=== PATIENT | female | born 1960 ===

== ENCOUNTER 2020-07-21 10:10 | Outpatient (REF) | payer OTHER, SELFPAY ==
[2020-07-21 11:38] LABS: Anion Gap 14 (12-20); Blood Urea Nitrogen 15 mg/dL (9-16); Calcium 8.6 mg/dL (8.4-10.2); Carbon Dioxide 26 mmol/L (22-29); Chloride 107 mmol/L (96-108); Cholesterol 185 mg/dL; Estimated Glomerular Filt Rate > 60; Glucose Fasting 80 mg/dL (60-99); HDL Cholesterol 48 mg/dL; LDL Cholesterol Calculated 117 mg/dl; Potassium 4.6 mmol/l (3.3-5.1); Sodium 142 mmol/L (135-145); Triglycerides 101 mg/dL; Uric Acid 5.4 mg/dL (2.4-5.7)
== END 2020-07-21 10:11 | disposition home or self-care (01) ==
LOC: HO.LAB 10:10
PROVIDERS: PCP Internal Medicine; Visit Provider Internal Medicine
DX: E79.0 Hyperuricemia without signs of inflammatory arthritis and tophaceous disease (principal); I10 Essential (primary) hypertension
CPT/HCPCS: 80048; 80061; 84550

== ENCOUNTER 2020-10-28 12:38 | Outpatient (REF) | payer OTHER, SELFPAY ==
--- NOTE | ~2020-10-28 | MM_ITS ---
EXAMINATION: MM SCREENING DIGITAL BREAST TOMOSYNTHESIS, BILATERAL CLINICAL INFORMATION: Screening. Asymptomatic. The lifetime risk of breast cancer based on the Tyrer-Cuzick Model is 16%. COMPARISON: Mammography: 05/26/2019, 04/13/2018, 04/06/2018, 02/05/2017 TECHNIQUE: Digital breast tomosynthesis is performed in both the craniocaudal and mediolateral oblique views along with computer-aided detection (CAD). Synthesized 2D images are generated from the tomosynthesis. FINDINGS: There are scattered areas of fibroglandular density (ACR BI-RADS breast composition Category b). There are no significant masses, abnormal calcifications, or other abnormalities. Parenchymal pattern is similar to prior studies. The axilla and skin contours are unremarkable. No architectural abnormality or developing density. No significant changes from prior exams. MM/MM tomosynthesis screening BI IMPRESSION: No mammographic evidence of malignancy. ASSESSMENT: BI-RADS 1: Negative RECOMMENDATION: Routine annual mammography screening. This patient's information was entered into a reminder system with a target due date for their next mammogram.
== END 2020-10-28 12:39 | disposition home or self-care (01) ==
LOC: HO.MAMMO 12:38
PROVIDERS: Visit Provider Internal Medicine
DX: Z12.31 Encounter for screening mammogram for malignant neoplasm of breast (principal)
CPT/HCPCS: 77063; 77067

== ENCOUNTER 2020-11-28 17:14 | Emergency (ER) | payer OTHER, SELFPAY ==
[2020-11-28 18:02] VITALS: BP 132/82; PULSE 74; RESP 18; TEMP 36.4; O2SAT 100; BMI 38.0
--- NOTE | 2020-11-28 19:11 | ED.SKABFB ---
HPI - Skin/Abscess/Foreign Bdy General Chief complaint: Skin/Abscess/Foreign Body Stated complaint: painful rash Time Seen by Provider: 11/28/20 18:52 Source: patient Mode of arrival: ambulatory Limitations: no limitations History of Present Illness HPI narrative: 60 y/o female presenting with painful, burning rash to the right side of her middle back for the last 5 days. She is unable to visualize the rash but states that it hurts. It is right under her bra strap. She denies new detergents, soaps, lotions. No fever or chills. No numbness, tingling, weakness. complaint: rash Onset (ago): day(s) (5) Tetanus up to date: unsure Location: back Severity: moderate Quality: burning and aching Pain Consistency: constant Relieving factors: none Exacerbating factors: palpation Context: none Associated symptoms: denies other symptoms Treatments prior to arrival: none Related Data Previous Rx's Medication Instructions Recorded ibuprofen 600 mg PO Q8H PRN #20 tab 11/28/20 valacyclovir 1,000 mg PO Q8H #21 tab 11/28/20 Allergies Allergy/AdvReac Type Severity Reaction Status Date / Time No Known Allergies Allergy Unverified 06/01/20 17:04 Review of Systems Review of Systems: Constitutional: No Fever, No Chills ENT/Mouth: No sore throat Eyes: No Eye Pain, No Swelling, No Redness Cardiovascular: No Chest Pain, No SOB Respiratory: No Cough, No Sputum Gastrointestinal: No Nausea, No Vomiting, No Diarrhea, No abdominal Pain Musculoskeletal: No joint pain, No Myalgias Skin: + Skin Lesions, + rash Neuro: No Weakness, No Numbness, No Dizziness, No Headache Heme/Lymph: No Bruising, No Lymphadenopathy PMFSH Past Medical History Attestation statement: The following information was validated with the patient. Medical History Asthma Social History Social History Advance Directives: No Advance Directives Information Provided: Yes Physical Exam Vital Signs: Vital Signs: Last Vital Signs Temp 97.6 F 11/28/20 18:02 Pulse 74 11/28/20 18:02 Resp 18 11/28/20 18:02 BP 132/82 11/28/20 18:02 Pulse Ox 100 11/28/20 18:02 Body Mass Index 38.0 Appearance: Alert. Oriented X3. No acute distress. HEENT: normal inspection CVS: Normal heart rate and rhythm. Pulses normal. Respiratory: No respiratory distress. Skin: Skin warm and dry. Normal skin color. Normal skin turgor. Middle right back with 5 blistering lesions in a linear fashion, erythema surrounding the area Extremities: atraumatic, no rashes. Neuro: Oriented X 3. No motor deficit. No sensory deficit. Course Course Course Narrative: 60 y/o female presenting with painful rash to right middle back - exam is consistent with herpes zoster, single dermatome distribution. No evidence of dissemination. Will start patient on valacyclovir and have her follow up with PCP. Stable for d/c. Critical Care Time Critical Care Time Critical Care Time: No Discharge Plan Discharge Clinical Impression: Herpes zoster Qualifiers: Herpes zoster complications: without complications Qualified Code(s): B02.9 - Zoster without complications Patient Disposition: Home, Self-Care Instructions: Shingles (ED) Additional Instructions: Take the prescribed anti-viral medication as prescribed - complete the entire course. Follow up with your doctor this week. If you have worsening symptoms come back to the ER for furher evaluation. Prescriptions: New valacyclovir 1 gram tablet 1,000 mg PO Q8H Qty: 21 RF: 0 ibuprofen 600 mg tablet 600 mg PO Q8H PRN (Reason: pain) Qty: 20 RF: 0 Interventions: ED Discharge Assessment Last Done: 11/28/20 19:38 Discharge Date/Time: 11/28/20 19:40
== END 2020-11-28 19:40 | disposition home or self-care (01) ==
PROVIDERS: Emergency Provider Emergency Medicine; PCP Internal Medicine
DX: B02.9 Zoster without complications (principal)
CPT/HCPCS: 99283; 99284

== ENCOUNTER 2023-07-01 11:41 | Outpatient (REF) | payer MEDICAID, SELFPAY ==
[2023-07-01 14:31] LABS: Cholesterol 189 mg/dL (<200); HDL Cholesterol 51 mg/dL (>40); LDL Cholesterol Calculated 121 mg/dL (<100); Triglycerides 89 mg/dL (<150)
[2023-07-01 14:36] LABS: TSH reflex Free T4 2.91 uIU/mL (0.32-4.0)
[2023-07-01 14:50] LABS: Anion Gap 14 (12-20)
[2023-07-01 14:55] LABS: Alanine Aminotransferase 18 U/L (0-31); Albumin Level 4.3 g/dL (3.5-5.0); Alkaline Phosphatase 73 U/L (39-117); Aspartate Amino Transferase 21 U/L (5-31); Bilirubin Direct 0.3 mg/dL (0.0-0.5); Blood Urea Nitrogen 20 mg/dL (9-16); Calcium 9.9 mg/dL (8.4-10.2); Carbon Dioxide 25 mmol/L (22-29); Chloride 108 mmol/L (96-108); Estimated Glomerular Filt Rate > 60; Glucose Random 102 mg/dL (60-115); Potassium 4.9 mmol/L (3.3-5.1); Sodium 142 mmol/L (135-145); Total Protein 7.3 g/dL (6.5-8.0); Uric Acid 6.2 mg/dL (2.4-5.7)
[2023-07-01 16:59] LABS: Reflex LDLD? No
== END 2023-07-01 11:42 | disposition home or self-care (01) ==
LOC: HO.HHCL 11:41
PROVIDERS: Visit Provider Internal Medicine
DX: I10 Essential (primary) hypertension (principal); E79.0 Hyperuricemia without signs of inflammatory arthritis and tophaceous disease
CPT/HCPCS: 36415; 80048; 80061; 80076; 84443; 84550

== ENCOUNTER 2023-07-19 10:36 | Outpatient (REF) | payer MEDICAID, SELFPAY ==
--- NOTE | ~2023-07-19 | MM_ITS ---
EXAMINATION: MM SCREENING DIGITAL BREAST TOMOSYNTHESIS, BILATERAL CLINICAL INFORMATION: Screening. Asymptomatic. COMPARISON: Mammography: This study is compared with prior exams dating back to 2016. TECHNIQUE: Digital breast tomosynthesis is performed in both the craniocaudal and mediolateral oblique views along with computer-aided detection (CAD). Synthesized 2D images are generated from the tomosynthesis. FINDINGS: There are scattered areas of fibroglandular density (ACR BI-RADS breast composition Category b). There are no significant masses, abnormal calcifications, or other abnormalities. MM/MM tomosynthesis screening BI IMPRESSION: No mammographic evidence of malignancy. ASSESSMENT: BI-RADS BI-RADS 1 - Negative RECOMMENDATION: Routine annual mammography screening. 1 year F/U This examination should not preclude the clinical evaluation of a suspicious palpable abnormality. This patient's information was entered into a reminder system with a target due date for their next mammogram.
== END 2023-07-19 10:37 | disposition home or self-care (01) ==
LOC: HO.MAMMO 10:36
PROVIDERS: Visit Provider Internal Medicine
DX: Z12.31 Encounter for screening mammogram for malignant neoplasm of breast (principal)
CPT/HCPCS: 77063; 77067

== ENCOUNTER → 2023-07-19 10:45 | Outpatient (BNV) | payer MEDICAID, SELFPAY | PROVIDERS: Visit Provider Radiology Diagnostic Radiology | DX: Z12.31 Encounter for screening mammogram for malignant neoplasm of breast (principal) | CPT/HCPCS: 77063; 77067 ==

== ENCOUNTER 2023-11-19 09:03 | Outpatient (REF) | payer MEDICAID, SELFPAY ==
--- NOTE | ~2023-11-19 | US_ITS ---
EXAMINATION: US ABDOMEN COMPLETE CLINICAL INFORMATION: Right upper quadrant pain. COMPARISON: CT abdomen and pelvis 12/30/2014. TECHNIQUE: Real-time imaging of the abdominal viscera. Technically limited study secondary to bowel gas and body habitus. FINDINGS: PANCREAS: Limited. The visualized pancreatic head and body are normal in appearance. The remainder of the pancreas is obscured from visualization by the overlying bowel gas. ABDOMINAL AORTA: The proximal, mid, and distal segments are normal in caliber. INFERIOR VENA CAVA: Visualized portions are normal. LIVER: The liver is normal in size. The liver contour is normal. There is diffuse increased liver parenchymal echogenicity. No focal hepatic lesion. There is no intrahepatic biliary duct dilatation seen. GALLBLADDER: Surgically absent. COMMON BILE DUCT: Normal in caliber measuring 0.6 cm in diameter. RIGHT KIDNEY: At the lower pole, a 4 mm hyperechoic nonshadowing focus with twinkle artifact is seen, representing a calculus versus vascular calcification. No hydronephrosis. No renal calculi or focal parenchymal lesions. The kidney measures 11.0 cm in maximum dimension. LEFT KIDNEY: Upper pole partially obscured by overlapping bowel gas. No hydronephrosis. No renal calculi or focal parenchymal lesions. The kidney measures 11.4 cm in maximum dimension. SPLEEN: Normal. The spleen measures 10.0 cm in maximum dimension. FREE FLUID: None. US/US abdomen complete IMPRESSION: 1. There is generalized increase in hepatic echotexture, consistent with fatty infiltration or hepatocellular disease. Please correlate clinically. No focal hepatic mass or intrahepatic biliary dilatation is seen. 2. A 4 mm right renal lower pole nonobstructing calculus versus vascular calcification is noted. If of continued clinical concern, this can be further evaluated with a KUB or CT. 3. The gallbladder is surgically absent. 4. Technically limited ultrasound examination, in particular of the pancreas and left kidney.
== END 2023-11-19 09:04 | disposition home or self-care (01) ==
LOC: HO.US 09:03
PROVIDERS: Visit Provider Internal Medicine
DX: R10.11 Right upper quadrant pain (principal); R00.2 Palpitations
CPT/HCPCS: 76700; 93005; 99202

== ENCOUNTER 2023-11-19 14:57 | Outpatient (AMB) | payer MEDICAID, SELFPAY ==
--- NOTE | 2023-11-19 14:59 | MHC.OFFVIS ---
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 In the PCP notes, it states that the palpitations started about a month ago but patient states she has had this for much longer almost years. She feels sensations of heart fluttering intermittently. Can happen any time. Sometimes daily but sometimes few times a week. These are brief episodes that last for a few seconds to few minutes. Sometimes she may feel some shortness of breath with activity. No clear angina. No documented coronary disease or other major cardiac issues. [facility] Medical History (Updated 11/19/23 @ 15:13 by Nolan Samuels MD) Asthma Surgical History (Updated 11/19/23 @ 15:03 by Martha Taylor) No pertinent past surgical history Family History (Updated 11/19/23 @ 15:04 by Martha Taylor) Mother Heart problem Father No problems noted. Social History (Updated 11/19/23 @ 15:04 by Martha Taylor) Patient Tobacco Use Status: Never used Tobacco Review of Systems Const Denies chills, Denies daytime sleepiness, Denies fatigue, Denies fever(s), Denies frequent falls, Denies night sweats, Denies snoring, Denies weakness, Denies weight gain and Denies weight loss Eyes Denies loss of vision ENT Denies dizziness and Denies hearing loss Card Denies chest pain, Denies chest pain with activity, Denies syncope, Denies rapid heart rate, Denies edema, Denies claudication, Denies leg edema, Denies lightheadedness, Reports palpitations, Reports dyspnea and Denies orthopnea Resp Denies cough, Denies excessive phlegm production, Reports dyspnea, Denies snoring and Denies wheezing GI Denies abdominal pain, Denies hematochezia, Denies change in bowel habits, Denies change in stool character, Denies heartburn, Denies nausea and Denies vomiting Denies hematuria, Denies urinary frequency and Denies dysuria Musc Denies arthralgias, Denies muscle weakness, Denies numbness and Denies tingling Skin/Breast Denies nail changes and Denies rash Neuro Denies Abnormal speech present, Denies dizziness, Denies syncope, Denies frequent falls, Denies loss of vision, Denies memory loss, Denies numbness, Denies tingling and Denies weakness Psych Denies depression and Denies memory loss Endo Denies fatigue and Reports palpitations Aller/Immun Denies wheezing Physical Exam Vital Signs: Last Vital Signs Pulse 65 11/19/23 15:02 BP 156/96 H 11/19/23 15:02 BMI result Body Mass Index 38.6 Const General: comfortable and no acute distress Orientation/consciousness: patient oriented x3 HEENT Other: Unremarkable Head: Yes normal to inspection Neck Neck: Yes normal visual inspection Chest Chest palpation & inspection: normal inspection of the chest Resp Auscultation: clear to auscultation bilaterally Cardio Palpation: normal PMI Heart sounds: S1 normal heart sound present, S2 normal heart sound present, no gallops, no murmurs and no rubs GI Palpation (GI): Soft to palpation Back/Spine/Pelvis Other: unremarkable Skin General skin exam: no rashes or lesions noted Neuro General: patient oriented x3 Speech: No Abnormal speech present Extrem General: Yes normal to inspection Psych Mental Status: mental status grossly normal Office Procedures EKG Details: EKG with sinus rhythm at 65/Min; no significant ST-T changes and otherwise unremarkable[place] [id number], Complete Assessment & Plan Assessment & Plan (1) Heart palpitations: Code(s): R00.2 - Palpitations Plan Possible supraventricular/ventricular ectopy. Less likely other arrhythmias like atrial flutter fibrillation. Baseline EKG is unremarkable. We can start with an echocardiogram for cardiac function assessment and 48 hour Holter. If that is not adequate, then we can do a 30 day monitor. Blood pressure seems slightly high today, but she states she rushed a lot to come here. May need to be followed. Follow-up after the above. Orders: Orders CA echo transthoracic complete Today R00.2 - Palpitations ECG holter monitor 48 hour Today R00.2 - Palpitations Medications: Changed From valacyclovir 1,000 mg PO Q8H 21 tabs 0RF To valacyclovir 1,000 mg PO Q8H Coding Level of Care Code New Pt Level 3 (24829) Diagnoses Heart palpitations R00.2 CPT Codes EKG - CPT: 26939-Tlfjhnusxoudiasga, Complete ([id number])
[2023-11-19 15:02] VITALS: BP 156/96; PULSE 65; BMI 38.6
== END 2023-11-19 15:34 | disposition home or self-care (01) ==
PROVIDERS: PCP Internal Medicine; Visit Provider Internal Medicine
DX: R00.2 Palpitations (principal)
CPT/HCPCS: 93010; 99203

== ENCOUNTER → 2023-12-26 13:50 | Outpatient (REF) | payer MEDICAID, SELFPAY ==
--- NOTE | 2023-12-26 13:53 | CA_ITS ---
Transthoracic Echocardiogram Patient (Last, First, Middle): Shelly Bryson, Gender: Female Date of : 1960 Age: 63 Procedure Date: 12/26/2023 Procedure Type: Transthoracic Echocardiogram Location: OP Height: 162.56 cm Weight: 101.61 kg BSA: 2.05 m2 Heart Rate: 68 bpm BP: 188 / 92 mmHg Table Runner: SB Referring MD: Nolan Samuels MD Symptoms: R00.2 - Palpitations Study Quality: Adequate ECG Rhythm: Sinus Conclusions: - Normal left ventricular size and systolic function. The visually estimated ejection fraction is between 65-70%. - E/E prime ratio is >15, consistent with elevated filling pressures. - Normal right ventricular cavity size and systolic function. - There is mild dilatation of the ascending aorta measuring 3.70 cm. Findings Left Ventricle Normal left ventricular size and systolic function. The visually estimated ejection fraction is between 65-70%. There is no evidence of regional wall motion abnormalities. Abnormal diastolic function is noted. Spectral Doppler is indicative of an impaired relaxation filling pattern. E/E prime ratio is >15, consistent with elevated filling pressures. There is mild septal asymmetric hypertrophy. Normal GLS -18%. Right Ventricle Normal right ventricular cavity size and systolic function. Atria The left atrium is normal in size. The right atrium is likely dilated. Aortic Valve Normal aortic valve structure and function. There is no aortic valve stenosis. There is no aortic valve regurgitation. Mitral Valve Normal mitral valve structure and function. There is no mitral valve regurgitation. There is no mitral valve stenosis. Pulmonic Valve The pulmonic valve is likely normal. Tricuspid Valve Normal tricuspid valve structure and function. There is no tricuspid valve regurgitation. Normal right atrial pressure. There is no evidence of pulmonary hypertension. Great Vessels There is mild dilatation of the ascending aorta measuring 3.70 cm. The visualized portions of the pulmonary artery and branches are normal. Venous The inferior vena cava is normal in size and collapses greater than 50% with inspiration. Pericardium/Pleural There is no evidence of pericardial effusion. Measurements 2D Linear Measurements IVSd: 1.10 0.6-0.9/0.6-1.0 cm LVIDd: 4.74 3.9-5.3/4.2-5.9 cm LVIDd Index: 2.31 2.4-3.2/2.2-3.1 cm/m2 LVIDs: 2.50 2.0-3.6 cm LVPWd: 0.86 0.7-1.1 cm LA Diam: 3.50 2.7-3.8/3.0-4.0 cm LAIDs Index: 1.71 1.5-2.3 cm/m2 LV Mass: 202.46 67-162/88-224 g LV Mass Index: 98.76 43-95/49-115 g/m2 LVOT Diam: 2.00 3.0+(-)1.3 cm 2D Systolic Function EF 4C: 74.20 >55% EF 2C: 78.00 >55% EF BiP: 76.30 >55% Mitral Valve MV Pk E: 0.94 MV PK A: 1.08 MV Decel Time: 216.00 E/A: 0.90 E'Lateral: 5.44 E'Medial: 5.87 E/E' Med: 16.00 E/E' Lat: 17.20 PHT: 63.00 MVA PHT: 3.49 Decel [place]: 4.34 Aortic Valve AoV Pk Chad: 1.27 AoV Pk Grad: 6.00 SHA: 2.30 LVOT LVOT Pk Chad: 0.91 LVOT Mn Chad: 0.63 LVOT VTI: 0.20 LVOT Pk Grad: 3.00 LVOT Mn Grad: 2.00 LVOT Diam: 2.00 LVOT Area: 3.14 Diastolic Function MV Pk E: 0.94 MV Pk A: 1.08 E/A: 0.90 E'Medial: 5.87 E/E' Med: 16.00 E' Laterial: 5.44 E/E' Lat: 17.20 Right Ventricle TAPSE (mm): 21.90 TVS' Chad: 15.50 Tricuspid Valve TR Pk Chad: 2.42 TR Pk Grad: 23.00 RA Press: 3.00 RVSP: 26.00 Great Vessels Aorta Sinus of Valsalva: 3.00 2.0-3.5 cm Ao Asc: 3.70 2.1-3.4 cm Pulmonary Veins Pulm Vein S/D 2.10 Pulmonary Valve PV Pk Chad: 0.81 Peak PV Grad: 3.00 Updated in Other Vendor System with Status of Final Dimitris Harris MD electronically signed on 12/28/2023 11:08:48 AM with status of Final
--- NOTE | 2023-12-26 13:53 | HM_ITS ---
Conclusion: 1. Patient was monitored for total period of 2 days 2. Baseline was normal sinus with average heart of 68 beats per minute 3. Rare PACs noted with no significant pauses 4. Patient marked the counter 1 time which correlated with PACs with symptoms of palpitations MTDD
== END ==
LOC: HO.CARD 13:50
PROVIDERS: PCP Internal Medicine; Visit Provider Internal Medicine
DX: R00.2 Palpitations (principal)
CPT/HCPCS: 93225; 93306; 93356

== ENCOUNTER → 2023-12-26 13:53 | Outpatient (BNV) | payer MEDICAID, SELFPAY | PROVIDERS: PCP Internal Medicine; Visit Provider Internal Medicine Cardiovascular Disease | DX: I49.1 Atrial premature depolarization (principal) | CPT/HCPCS: 93227; 93306; 93356 ==

== ENCOUNTER 2024-02-13 14:50 | Outpatient (AMB) | payer MEDICAID, SELFPAY ==
--- NOTE | 2024-02-13 14:52 | MHC.OFFVIS ---
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 She reports she has been doing well. She still has palpitations about 1-2 times per week. Otherwise she denies chest pains, shortness of breath, or orthopnea. [facility] Medical History (Updated 02/13/24 @ 15:47 by Jia Jaeger NP) Hypertension Asthma Surgical History No pertinent past surgical history Family History Mother Heart problem Father No problems noted. Social History Patient Tobacco Use Status: Never used Tobacco Review of Systems Const Denies weakness ENT Denies dizziness Card Denies chest pain, Denies chest pain with activity, Denies syncope, Denies rapid heart rate, Denies pedal edema, Denies edema, Denies leg edema, Denies lightheadedness, Denies palpitations, Denies dyspnea, Denies dyspnea on exertion and Denies orthopnea Resp Denies cough, Denies dyspnea and Denies dyspnea on exertion GI Denies hematochezia and Denies change in stool character Musc Denies abnormal gait, Denies muscle cramps, Denies muscle weakness, Denies numbness, Denies radiating pain into limb and Denies tingling Neuro Denies abnormal gait, Denies dizziness, Denies syncope, Denies numbness, Denies tingling and Denies weakness Endo Denies palpitations Physical Exam Vital Signs: Last Vital Signs Pulse 71 02/13/24 14:53 BP 138/86 02/13/24 15:18 BMI result Body Mass Index 39.0 Const General: healthy appearing and no acute distress Orientation/consciousness: patient oriented x3 HEENT Head: Yes normal to inspection Eyes General: appearance normal, both eyes and all related structures Neck Neck: Yes normal visual inspection Chest Chest palpation & inspection: normal inspection of the chest Resp Effort & Inspection: normal respiratory effort Auscultation: clear to auscultation bilaterally Cardio Jugular venous distension: no JVD Palpation: normal PMI Rate: regular rate Rhythm: regular rhythm Heart sounds: S1 normal heart sound present, S2 normal heart sound present, no click, no gallops, no murmurs and no rubs GI Inspection: Yes normal to inspection Palpation (GI): Soft to palpation Skin General skin exam: no rashes or lesions noted Neuro General: patient oriented x3 Extrem General: Yes normal to inspection Psych Appearance: grossly normal Results Reviewed Results Reviewed: Holter Conclusion: 1. Patient was monitored for total period of 2 days 2. Baseline was normal sinus with average heart of 68 beats per minute 3. Rare PACs noted with no significant pauses 4. Patient marked the counter 1 time which correlated with PACs with symptoms of palpitations Echo Conclusions: - Normal left ventricular size and systolic function. The visually estimated ejection fraction is between 65-70%. - E/E prime ratio is >15, consistent with elevated filling pressures. - Normal right ventricular cavity size and systolic function. - There is mild dilatation of the ascending aorta measuring 3.70 cm. Assessment & Plan Assessment & Plan (1) Heart palpitations: Code(s): R00.2 - Palpitations Category: Medical Plan: Symptoms of palpitations correlated with PAC. report notes rare ectopy. She avoids caffeine but reports she has not been having good sleep due to the weather. Stress mitigation and sleep hygiene discussed. Continue to avoid stimulants such as caffeine. Patient reports understanding. Will call if symptoms worsen. If not will follow up as scheduled. (2) Hypertension: Code(s): I10 - Essential (primary) hypertension Category: Medical Plan: Managed by PCP. Informed to monitor blood pressures over the next week and bring readings to PCP. Avoidance of salt and proper technique discussed. Coding Level of Care Code Est Pt Level 3 (22169) Diagnoses Heart palpitations R00.2 Hypertension I10
[2024-02-13 14:53] VITALS: BP 156/80; PULSE 71; BMI 39.0
[2024-02-13 15:18] VITALS: BP 138/86
== END 2024-02-13 15:43 | disposition home or self-care (01) ==
PROVIDERS: PCP Internal Medicine; Visit Provider Nurse Practitioner
DX: R00.2 Palpitations (principal); I10 Essential (primary) hypertension
CPT/HCPCS: 99213

== ENCOUNTER → 2024-02-13 14:50 | Outpatient (BNVA) | payer MEDICAID, SELFPAY | PROVIDERS: PCP Internal Medicine; Visit Provider Nurse Practitioner | DX: R00.2 Palpitations (principal); I10 Essential (primary) hypertension | CPT/HCPCS: 99212 ==